=== PATIENT | male | born 1995 | race Hispanic/Latino ===

== ENCOUNTER 2020-08-27 17:38 | Emergency (ER) | payer SELFPAY ==
[2020-08-27] MEDS ORDERED: KETOROLAC TROMETHAMINE 60 MG/2 ML VIAL ONE (17:50)
== END 2020-08-27 19:16 | disposition home or self-care (01) ==
LOC: EDH 17:38
DX: S93.504A Unspecified sprain of right lesser toe(s), initial encounter (principal); Z72.0 Tobacco use; X58.XXXA Exposure to other specified factors, initial encounter; Y93.01 Activity, walking, marching and hiking; Y92.89 Other specified places as the place of occurrence of the external cause; Y99.8 Other external cause status
CPT/HCPCS: 73620; 96372; 99283; J1885